=== PATIENT | female | born 1990 | race Caucasian/White ===

== ENCOUNTER 2016-10-11 00:20 | Emergency (ER) | payer BC ==
[~2016-10-11] VITALS: Ht 167.6 cm; Wt 61.4 kg
[2016-10-11 00:22] VITALS: TEMP 97.9
[2016-10-11] MEDS ORDERED: ALDACTONE50 MG PO (00:27)
[2016-10-11] MEDS ORDERED: MINOCYCLIN100 MG/CAP PO (00:27)
[2016-10-11 01:03] LABS: BASO # 0.1 (0.0-0.2); EOS # 0.2 (0.0-0.7); EOS % 3.1 % (0-4.0); GRAN # 2.6 (1.4-6.5); GRAN % 44.9 % (42.2-75.2); HEMATOCRIT 41.4 % (37.0-47.0); LYMPH # 2.5 (1.2-3.4); LYMPH % 42.1 % (20.0-51.0); MEAN CELL VOLUME 87 fl (80.0-100.0); MEAN CORPUSCULAR HEMOGLOBIN 29 pg (27.0-31.0); MEAN CORPUSCULAR HGB CONC 34 g/dl (33.0-37.0); MEAN PLATELET VOLUME 11.6 fl (7.4-10.4); MONO # 0.5 (0.1-0.6); MONO % 8.6 % (1.7-9.3); PLATELET COUNT 202 K/mm3 (130-400); RED BLOOD COUNT 4.78 M/mm3 (4.10-5.30); REDCELL DISTRIBUTION WIDTH-CV 11.9 % (11.5-14.5); WHITE BLOOD COUNT 5.8 K/mm3 (4.8-10.8)
[2016-10-11 01:15] LABS: ADJUSTED CALCIUM 8.9 mg/dL (8.4-10.2); ALANINE AMINOTRANSFERASE 25 U/L (9-52); ALBUMIN 4.6 gm/dL (3.5-5.0); ALKALINE PHOSPHATASE 53 U/L (50-136); ANION GAP 13 mmol/L (7-16); BILIRUBIN,TOTAL 0.6 mg/dL (0.0-1.0); BLOOD UREA NITROGEN 27 mg/dL (7-17); CALCIUM 9.4 mg/dL (8.4-10.2); CARBON DIOXIDE 25 mmol/L (22-30); CHLORIDE 103 mmol/L (98-107); CREATININE, serum 0.95 mg/dL (0.52-1.25); GLUCOSE 104 mg/dL (74-106); SODIUM 141 mmol/L (137-145); TOTAL PROTEIN 7.3 gm/dL (6.4-8.2)
[2016-10-11 01:17] LABS: C-REACTIVE PROTEIN < 0.5 mg/dL (0.0-0.9)
[2016-10-11 01:29] LABS: TROPONIN-I < 0.012 ng/mL (0.000-0.034)
[2016-10-11 01:48] LABS: POTASSIUM 4.5 mmol/L (3.4-5.0)
[2016-10-11 04:12] VITALS: BP 137/83; PULSE 56
== END 2016-10-11 04:12 | disposition home or self-care (01) ==
LOC: COL.ER 00:20
PROVIDERS: Physician Assistant
DX: M79.602 Pain in left arm (principal); M79.642 Pain in left hand; R79.89 Other specified abnormal findings of blood chemistry; R42 Dizziness and giddiness; F41.9 Anxiety disorder, unspecified; R00.2 Palpitations
CPT/HCPCS: J1650; J7030; Q9967

== ENCOUNTER → 2016-10-12 | Outpatient (CLI) | payer BC ==
[~2016-10-12] MED LIST: ALDACTONE50 MG PO; MINOCYCLIN100 MG/CAP PO
== END ==
LOC: COL.VAS 07:52
DX: M79.602 Pain in left arm (principal); R79.89 Other specified abnormal findings of blood chemistry